=== PATIENT | male | born 1940 | race Two or more races ===

== ENCOUNTER 2018-01-04 09:27 | Outpatient (CLI) | payer OTHER ==
[~2018-01-04 09:27] MED LIST: ASA81 MG; DIOVAN320 MG; HUMALOG MIX 75/23 ML; LIPITOR20 MG; SYNTHROID100 MCG; TOPROL XL50 MG
== END 2018-01-04 09:58 | disposition home or self-care (01) ==
LOC: SONOGRAMA 09:27
DX: I25.119 Atherosclerotic heart disease of native coronary artery with unspecified angina pectoris (principal); N18.3 Chronic kidney disease, stage 3 (moderate); I10 Essential (primary) hypertension; E11.9 Type 2 diabetes mellitus without complications

== ENCOUNTER 2018-10-08 08:24 | Outpatient (CLI) | payer OTHER | END 2018-10-08 08:31 | disposition home or self-care (01) | LOC: RAD 08:24 | DX: I25.10 Atherosclerotic heart disease of native coronary artery without angina pectoris (principal); Z95.1 Presence of aortocoronary bypass graft ==

== ENCOUNTER → 2020-04-25 | Outpatient (CLI) | payer OTHER | END | disposition home or self-care (01) | LOC: MAMO-SONO 04-16 09:45 → SONOGRAMA 14:10 | PROVIDERS: ATTEND Internal Medicine Nephrology | DX: N18.2 Chronic kidney disease, stage 2 (mild) (principal) ==

== ENCOUNTER 2022-03-11 08:43 | Outpatient (CLI) | payer OTHER | END 2022-03-11 08:59 | disposition home or self-care (01) | LOC: SONOGRAMA 08:43 | PROVIDERS: ATTEND Internal Medicine Nephrology | DX: I25.119 Atherosclerotic heart disease of native coronary artery with unspecified angina pectoris (principal); N18.30 Chronic kidney disease, stage 3 unspecified; I10 Essential (primary) hypertension; E11.9 Type 2 diabetes mellitus without complications ==